=== PATIENT | male | born 1945 | race Caucasian/White ===

== ENCOUNTER → 2017-10-17 | Outpatient (CLI) | payer MEDICARE ==
--- NOTE | 2017-10-17 14:21 | RADIOLOGY REPORT (SQ) ---
EXAM DESCRIPTION: MRI LUMBAR SPINE WITHOUT COMPLETED DATE/TIME: 10/17/2017 10:25 am REASON FOR STUDY: RADICULOPATHY, LUMBAR REGION M54.16 RADICULOPATHY, LUMBAR REGION COMPARISON: None. TECHNIQUE: Sagittal and Axial imaging includes T1, T2, STIR and gradient echo sequences. Coronal T2/ HASTE imaging. LIMITATIONS: None. FINDINGS: VISUALIZED UPPER ABDOMEN: Limited evaluation. No acute or suspicious findings suggested. SEGMENTATION: No transitional anatomy. The lowest well-developed disc space is labeled L5-S1. ALIGNMENT: Anatomic. VERTEBRAE: Intact. BONE MARROW: Multilevel reactive endplate changes most marked at L1-2. DISC SIGNAL: Generalized loss of height and T2 signal throughout the lumbosacral spine. POSTERIOR ELEMENTS: Generally intact. No pars defect evident. HARDWARE: None in the spine. CORD AND CONUS: Normal in size and signal intensity. Conus at the appropriate level. SOFT TISSUES: No aortic aneurysm seen. No bulky retroperitoneal adenopathy or mass. No paraspinal mas s or fluid. L1-L2: Diffuse degenerative disc. Central disc extrusion with disc material extending posterior to t he central L2 vertebral body. Mild narrowing of the exit foramina. Mild central canal stenosis. L2-L3: Generalized degenerative disc. Mild narrowing of the exit foramina. L3-L4: Broad-based disc bulge with diffuse disc degeneration. Facet and ligamentous hypertrophy with lateral recess narrowing. Mild narrowing of the exit foramina with mild to moderate central canal s tenosis. L4-L5: Degenerative disc with broad-based bulge. Facet ligamentous hypertrophy asymmetric left. Mod erate narrowing of the exit foramina right greater than left. Mild central canal stenosis. L5-S1: Diffuse degenerative disc with diffuse bulge asymmetric right. Moderate narrowing of the righ t exit foramina and mild narrowing of the left exit foramina. LOWER THORACIC: Incompletely imaged. No stenosis seen. SACRUM: Visualized upper sacrum intact. OTHER: No other significant findings. IMPRESSION: Multilevel spondylosis. In general there is diffuse degenerative disc disease with loss of height and T2 signal resulting in multilevel exit foraminal narrowing. There is mild to moderate spinal stenosis at L3-4. TECHNICAL DOCUMENTATION: JOB ID: [id number]- All Rights Reserved Reading location - IP/workstation name: [email or web address]
== END ==
LOC: RAD 09:49
PROVIDERS: ATTEND Anesthesiology Pain Medicine
DX: M51.16 Intervertebral disc disorders with radiculopathy, lumbar region (principal)
CPT/HCPCS: 72148